=== PATIENT | male | born 1935 | race Caucasian/White ===

== ENCOUNTER 2017-02-05 05:49 | Day surgery (SDC) | payer MEDICARE ==
[~2017-02-05] VITALS: Ht 182.9 cm; Wt 66.1 kg
[2017-02-05] VITALS (10 sets, daily range): BP systolic 104–144; BP diastolic 58–81; PULSE 61–75; RESP 11–18; O2SAT 95–100
[~2017-02-05 05:49] MED LIST: ASPI-973 PO; ATEN25TA PO; LIP40 PO
[2017-02-05] MEDS ORDERED: Dexamethasone 4 mg/mL Inj ONE (05:50)
[2017-02-05] MEDS ORDERED: Propofol 10,000 mCg/mL 20 mL Inj ONE (05:50)
[2017-02-05] MEDS ORDERED: EPHEDrine/NS 5 mg/mL 5 mL Syringe ONE (05:50)
[2017-02-05] MEDS ORDERED: Phenylephrine/NS-PF 100 mCg/mL 5 mL Syringe IVPUSH ONE (05:50)
[2017-02-05] MEDS ORDERED: Ondansetron 2 mg/mL 2 mL Inj ONE (05:50)
[2017-02-05] MEDS ORDERED: fentaNYL-PF 50 mCg/mL 2 mL Inj ONE (05:50)
[2017-02-05] MEDS: Lactated Ringer's 1,000 ML IV SCH ×2 (05:57→07:47)
[2017-02-05] MEDS ORDERED: CeFAZolin 2 Gm/50 mL D5W Duplex Bag IV ONE (07:28)
[2017-02-05] MEDS ORDERED: Lactated Ringer's 1,000 ML IV SCH (07:42)
[2017-02-05] MEDS ORDERED: Lactated Ringer's 500 ML IV PRN (07:42)
--- NOTE | 2017-02-05 07:42 | PCM.HPANE ---
Patient Data Surgeon Admitting Provider: Attending Provider:Sadiq Tatum MD Primary Care Physician:Ann Tavarez MD Other Provider:Bárbara Bautista Anesthesia Reason for Visit Left Inguinal Hernia Ht/WT & BMI Height (Feet): 6 Height (Inches): 0.00 Weight (Kilograms): 66.100 Body Mass Index 19.00 Allergies Coded Allergies: No Known Allergies (Verified , 05/31/05) Past Anesthesia History Anesthesia History: Denies:: Abnormal Airway, Anesthesia Reactions, Difficult Intubation, Fam Anesthesia Reaction, Fam Malignant Hypertherm, Malignant Hyperthermia Diabetes History Hx Diabetes?: No Current Bedside Blood Glucose: 97 MRSA MRSA: No Medications Blood Thinner: Aspirin Hypertension Medication: Yes Home Meds Incl Beta Sujatha: Yes Date Beta Sujatha Taken: Feb 05, 2017 Time Beta Sujatha Taken: 444 Previous Beta Sujatha Dose >24: Previous Dose <24 Hours Reported Medications Atorvastatin (Lipitor)40 Mg [id number] Mg PO DAILY Ref 0 02/01/17 Atenolol 25 Mg [id number] Mg PO DAILY #30 TABLET Ref 0 02/01/17 Aspirin 81 Mg [id number] Mg PO DAILY Ref 0 02/01/17 Discontinued Reported Medications Tamsulosin-Expunged Drug, Do Not Renew! (Flomax-Expunged Drug, Do Not Renew!) 0.4 Mg Capsule0.4 Mg PO DAILY 12/03/11 Ferrous Sulfate (Alina-Time)325 Mg [id number] Mg PO DAILY 12/03/11 Niacin-Expunged Drug, Do Not Renew! (Niaspan-Expunged Drug, Do Not Renew!)1,000 Mg Tablet.sa1,000 Mg PO DAILY 12/03/11 Aspirin-Expunged Drug, Do Not Renew! (Aspirin EC-Expunged Drug, Do Not Renew!) 81 Mg [id number] Mg PO DAILY 12/03/11 Simvastatin-Expunged Drug, Choose New Med! 40 Mg [id number] Mg PO DAILY 12/03/11 Atenolol-Expunged Drug, Do Not Renew! 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 ) Chest Pain Hypertension Denies:: AICD Congestive Heart Failure Coronary Artery Disease Edema Heart Murmur Irregular Heartbeat Pacemaker Peripheral Vascular Rheumatic Fever Other Cardiac History: currently > 4 METS without CP/BARRETO Hx of Respiratory Problem?: No Respiratory History: Denies:: Asthma COPD Dyspnea Emphysema Oxygen Administration Pneumonia Tuberculosis Use of C-PAP Machine Use of Inhalers / NEBS Hx Neurologic Problems?: No Neurological History: Denies:: Alzheimer's Disease CVA Dementia Dizziness Headaches Multiple Sclerosis Parkinson's Disease Peripheral Neuropathy Seizures TIA Hx of GI Problems?: Yes Other GI Pertinent History: left inguinal hernia current admission problem Hx of Problems?: Yes Genitourinary History: Denies:: Kidney Stones Urinary Tract Infection Male Hx: Positive for:: Prostate Problems (TURP) Denies:: Scrotal Mass Testicular Surgery Skin History: Denies:: History Skin Disorders? Pressure Ulcers Hx Musculoskeletal Problems?: Yes Musculoskeletal History: Positive for:: Back Injury Osteoarthritis Denies:: Fibromyalgia Joint Replacement Myasthenia Gravis Systemic Lupus Hx of Psycho/Social Problems?: No Psycho Social History: Denies:: Anxiety Hx Depression Hx Surgeries?: Yes (Cath, 5 way bypass, TURP) Hx Any Other Health Problems?: Yes Other History: Denies:: Cancer Endocrine Disease Hospitalization Thyroid Disease History Blood Transfusions: Positive for:: Accept Blood Products? Denies:: Blood Transfusions Hx Diabetes: NoBedside Blood Glucose: 97 Hx Alcohol Use: NoHx Substance Use: NoHave You Smoked inLast 12 mo: No Stop/Bang S-Snoring: Do You Snore Loudly: No T-Tired: feel tired, fatigued: Yes O-Obsered: Observed not breath: No P-Blood Pressure: treated: No B- Body Mass Index > 35 kg/m2: No A- Age over 50: Yes N- Neck Large Circumference: No G- Gender Male: Yes NEHEMIAS Total Score: 3 NEHEMIAS Risk Assessment: High Risk, =/>3 Yes Risk Assessment Category Category 1A: Patient has history of documented sleep apnea, and HAS NOT received any narcotic, sedative or anesthesia administration during this stay. Category 1B: Patient has history of documented sleep apnea, and HAS received any narcotic , sedative or anesthesia administration during this stay Category 2: Patient has SUSPECTED Obstructive Sleep Apnea, and HAS received any narcotic , sedative or anesthesia administration during this stay. Category 3: Patient has SUSPECTED Obstructive Sleep Apnea and HAS NOT received narcotic, sedative or anesthesia administration during this stay. Category 4: Outpatient in Procedural Areas with known sleep apnea or who screen positive for High Risk via the STOP/BANG questionnaire. Exam Exam Vital Signs Vital Signs Date Time Temp Pulse Resp B/P Pulse Ox O2 Delivery O2 Flow Rate FiO2 02/05/17 06:40 36.3 66 18 144/81 97 Room Air General Appearance: Alert, Oriented X3, Cooperative, No Acute Distress HEENT/AIRWAY: MP 2 Lungs: Clear to Auscultation, Normal Air Movement Heart: Exam Unremarkable, Regular Rate/Rhythm, No Murmurs/Rubs/Gallops Meds/Labs/Diagnostics Admission Meds Current Medications Lactated Ringer's (Lr) 1,000 ml @ 120 mls/hr Q8H20M IV Last administered on t 05:57; Start 02/05/17 at 05:00; Stop 02/05/17 at 13:19 Bedside Blood Glucose: 97 Plan Impression Patient chart reviewed, patient interviewed and anesthestic plan with risks, benefits, and alternatives discussed, and informed consent obtained. NPO per Anesth. Guidelines: Yes ASA Physical Status: ASA2 Mod Systemic Disease Anesthetic Plan: GA Bene/Risks/Altern/Consents: Yes HP Complete Prior to Induction: Yes Oliverio Pascual MD Feb 05, 2017 07:07
[2017-02-05] MEDS ORDERED: fentaNYL-PF 50 mCg/mL 2 mL Inj IVPUSH PRN (07:45)
[2017-02-05] MEDS ORDERED: EPHEDrine Sulfate 50 mg/mL Inj IVPUSH PRN (07:45)
[2017-02-05] MEDS ORDERED: Ondansetron 2 mg/mL 2 mL Inj IVPUSH PRN (07:45)
[2017-02-05] MEDS ORDERED: Atropine 0.4 mg/mL Inj IVPUSH PRN (07:45)
[2017-02-05] MEDS ORDERED: Phenylephrine 10,000 mCg/mL Inj IVPUSH PRN (07:45)
[2017-02-05] MEDS ORDERED: MetoCLOpramide 5 mg/mL 2 mL Inj IVPUSH PRN (07:45)
[2017-02-05] MEDS ORDERED: Labetalol 5 mg/mL 4 mL Inj IV PRN (07:45)
[2017-02-05] MEDS ORDERED: HYDROmorphone 1 mg/mL Inj IVPUSH PRN (07:45)
[2017-02-05] MEDS ORDERED: Bupivacaine-MPF 0.5% 30 mL Inj INFILTRATE ONE (07:46)
[2017-02-05] MEDS ORDERED: HYDROcodone-APAP 5-325 mg Tablet PO PRN (08:25)
--- NOTE | 2017-02-05 08:36 | PCM.ANEP1 ---
Post Anesthesia PACU Phase 1 Assessment Vital Signs Vital Signs Date Time Temp Pulse Resp B/P Pulse Ox O2 Delivery O2 Flow Rate FiO2 02/05/17 08:30 68 12 113/65 100 Simple Mask 10 02/05/17 08:26 36.6 67 13 124/64 100 Simple Mask 10 02/05/17 06:40 36.3 66 18 144/81 97 Room Air Anesthetic Administered: GA Level of Alertness: Sleepy, easy to arouse CALDERON's with Equal Strength: Yes Pain: No Nausea or Vomiting: No CV Function & Hydration Stable: Yes Airway Device: Oxygen Delivery: Simple Mask Lungs: Clear to Auscultation, Normal Air Movement PACU Phase 2 Assessment Complications: No Follow up Care: N/A Patient Instructions Provided: N/A Oliverio Pascual MD Feb 05, 2017 08:36
--- NOTE | 2017-02-05 08:48 | OP ---
[address] [id number] OPERATIVE REPORT PATIENT: PATRICK MIJARES : 1935 MR#: [id number] ADMIT: 02/05/2017 JOB ID: [id number] DATE OF SURGERY: 02/05/2017 PREOPERATIVE DIAGNOSIS(ES): Symptomatic left inguinal hernia. POSTOPERATIVE DIAGNOSIS(ES): Symptomatic direct left inguinal hernia. OPERATION: Repair of left direct inguinal hernia with Kugel patch. SURGEON: Sadiq Tatum M.D. CHERRY DIPPER: Dorothea Tabares PA-C/Gianni Parra PA-C INDICATIONS: An 81-year-old man who has a moderately large symptomatic left inguinal hernia, but also a small asymptomatic right inguinal hernia. After discussing options with the patient, it was elected to proceed with repair of the symptomatic moderately large left inguinal hernia, but for now to observe the right inguinal hernia. FINDINGS: He had a large direct left inguinal hernia. DESCRIPTION OF PROCEDURE: At the beginning and end of the operation, the SCOAP checklist was completed. An LMA anesthetic was induced. He received preoperative antibiotics. Using ChloraPrep, he was prepped and draped in the usual fashion. He received local anesthesia with 0.5% plain bupivacaine. A left inguinal incision was designed and incised. Dissection was carried down to the external oblique which was opened in the direction of its fibers. The ilioinguinal nerve was identified and sharply divided as it exited the internal oblique. The external oblique, internal oblique and transverse abdominis were opened in the direction of their fibers and then transversalis fascia was opened vertically. The peritoneum was identified. Cord structures were identified, controlled with vessel loop. The deep epigastric artery and vein were identified and reflected anteriorly. The sac was mobilized out of the direct defect and the preperitoneal space was developed extending medial to the pubic tubercle. A small Kugel patch was positioned within it and secured to the transversus abdominis with interrupted 2-0 PDS. The internal oblique was closed with running 2-0 PDS. The external oblique and Dudley fascia with 3-0 Vicryl. The skin with subcuticular 4-0 Vicryl. Estimated blood loss less than 5 cc. There were no apparent complications. The final sponge, needle and instrument counts were announced as correct and the patient was returned to recovery room in stable condition. Critical assistance was provided by Dorothea Tabares PA-C and Gianni Parra PA-C.
== END 2017-02-05 23:59 | disposition home or self-care (01) ==
LOC: SAS 05:49
PROVIDERS: ATTEND Surgery
DX: K40.90 Unilateral inguinal hernia, without obstruction or gangrene, not specified as recurrent (principal); I25.110 Atherosclerotic heart disease of native coronary artery with unstable angina pectoris; I10 Essential (primary) hypertension; E78.00 Pure hypercholesterolemia, unspecified; I25.2 Old myocardial infarction; N40.1 Benign prostatic hyperplasia with lower urinary tract symptoms; R33.9 Retention of urine, unspecified; Z95.1 Presence of aortocoronary bypass graft; Z95.5 Presence of coronary angioplasty implant and graft; Z79.82 Long term (current) use of aspirin
CPT/HCPCS: 49505; C1781; J0690; J1100; J2370; J2405; J3010; J7120